=== PATIENT | female | born 1930 | race Caucasian/White ===

== ENCOUNTER 2018-07-07 12:29 | Emergency (ER) | payer OTHER ==
[~2018-07-07] VITALS: Ht 160 cm; Wt 79.4 kg
[2018-07-07] MEDS ORDERED: GABAPENTIN800 MG PO (13:25)
[2018-07-07] MEDS ORDERED: TENORMIN50 M1 PO (13:25)
[2018-07-07] MEDS ORDERED: ASPIRIN81 MG PO (13:26)
[2018-07-07] MEDS ORDERED: FLUOXETINE HCL20 MG PO (13:27)
[2018-07-07] MEDS ORDERED: NAMENDA10 MG PO (13:28)
[2018-07-07] MEDS ORDERED: ARICEPT5 MG PO (13:28)
[2018-07-07] MEDS ORDERED: BUPROPION XL150 MG PO (13:28)
[2018-07-07] MEDS ORDERED: OMEPRAZOLE20 MG PO (13:28)
[2018-07-07] MEDS ORDERED: SYNTHROID100 MCG PO (13:29)
== END 2018-07-07 15:56 | disposition home or self-care (01) ==
LOC: ER 12:29
DX: S30.0XXA Contusion of lower back and pelvis, initial encounter (principal); W18.09XA Striking against other object with subsequent fall, initial encounter; Y93.89 Activity, other specified; Y92.013 Bedroom of single-family (private) house as the place of occurrence of the external cause; Y99.8 Other external cause status

== ENCOUNTER 2018-07-24 13:51 | Emergency (ER) | payer OTHER ==
[~2018-07-24] VITALS: Ht 160 cm; Wt 81.6 kg
[~2018-07-24 13:51] MED LIST: ARICEPT5 MG PO; ASPIRIN81 MG PO; BUPROPION XL150 MG PO; FLUOXETINE HCL20 MG PO; GABAPENTIN800 MG PO; NAMENDA10 MG PO; OMEPRAZOLE20 MG PO; SYNTHROID100 MCG PO; TENORMIN50 M1 PO
[2018-07-24] MEDS ORDERED: PERCOCET 5-3251 EACH PO (17:02)
== END 2018-07-24 22:28 | disposition home or self-care (01) ==
LOC: ER 13:51
DX: M54.5 Low back pain (principal); G57.83 Other specified mononeuropathies of bilateral lower limbs